=== PATIENT | female | born 1940 | race Two or more races ===

== ENCOUNTER 2017-12-31 09:36 | Outpatient (CLI) | payer OTHER | END 2017-12-31 09:54 | disposition home or self-care (01) | LOC: NUCLEAR 09:36 → EDBD 09:36 → NUCLEAR 09:54 | DX: I70.213 Atherosclerosis of native arteries of extremities with intermittent claudication, bilateral legs (principal) ==

== ENCOUNTER 2018-03-18 15:32 | Emergency (ER) | payer OTHER ==
[~2018-03-18] VITALS: Ht 162.6 cm; Wt 90.7 kg
== END 2018-03-18 21:08 | disposition home or self-care (01) ==
LOC: ER 15:32
DX: G89.11 Acute pain due to trauma (principal); M54.5 Low back pain; M54.2 Cervicalgia; R51 Headache

== ENCOUNTER 2018-12-20 10:57 | Outpatient (CLI) | payer OTHER | END 2018-12-20 16:03 | disposition home or self-care (01) | LOC: SONOGRAMA 10:57 | DX: E04.1 Nontoxic single thyroid nodule (principal) ==

== ENCOUNTER 2018-12-31 11:31 | Outpatient (CLI) | payer OTHER | END 2018-12-31 11:34 | disposition home or self-care (01) | LOC: MAMO-SONO 11:31 | DX: Z12.31 Encounter for screening mammogram for malignant neoplasm of breast (principal); Z87.898 Personal history of other specified conditions; N60.11 Diffuse cystic mastopathy of right breast; N60.12 Diffuse cystic mastopathy of left breast; Z09 Encounter for follow-up examination after completed treatment for conditions other than malignant neoplasm ==

== ENCOUNTER 2019-03-28 19:18 | Emergency (ER) | payer OTHER ==
[~2019-03-28] VITALS: Ht 162.6 cm; Wt 86.2 kg
[2019-03-28] MEDS ORDERED: SYNTHROID100 MCG (20:09)
== END 2019-03-28 22:32 | disposition home or self-care (01) ==
LOC: ER 19:18
DX: J09.X2 Influenza due to identified novel influenza A virus with other respiratory manifestations (principal)

== ENCOUNTER 2019-06-03 13:54 | Outpatient (CLI) | payer OTHER ==
[~2019-06-03 13:54] MED LIST: SYNTHROID100 MCG
== END 2019-06-03 13:57 | disposition home or self-care (01) ==
LOC: NUCLEAR 13:54
DX: M85.89 Other specified disorders of bone density and structure, multiple sites (principal)

== ENCOUNTER 2020-01-21 12:05 | Outpatient (CLI) | payer OTHER | END 2020-01-21 12:12 | disposition home or self-care (01) | LOC: RAD 12:05 | PROVIDERS: ATTEND Specialist | DX: M77.12 Lateral epicondylitis, left elbow (principal); M17.0 Bilateral primary osteoarthritis of knee; M25.512 Pain in left shoulder; M25.522 Pain in left elbow ==

== ENCOUNTER → 2020-02-12 | Outpatient (CLI) | payer OTHER | END | disposition home or self-care (01) | LOC: RAD 11:20 | PROVIDERS: ATTEND Pulmonary Function Technologist | DX: J45.998 Other asthma (principal); M79.7 Fibromyalgia ==

== ENCOUNTER 2021-06-16 11:30 | Outpatient (CLI) | payer OTHER | END 2021-06-16 15:43 | disposition home or self-care (01) | LOC: NUCLEAR 11:30 | DX: M81.0 Age-related osteoporosis without current pathological fracture (principal) ==

== ENCOUNTER 2021-06-28 07:26 | Outpatient (CLI) | payer OTHER | END 2021-06-28 07:27 | disposition home or self-care (01) | LOC: NUCLEAR 07:26 | PROVIDERS: ATTEND Internal Medicine Cardiovascular Disease | DX: I25.10 Atherosclerotic heart disease of native coronary artery without angina pectoris (principal) | CPT/HCPCS: 78452; A9500 ==

== ENCOUNTER 2021-07-05 14:14 | Outpatient (CLI) | payer OTHER | END 2021-07-05 14:26 | disposition home or self-care (01) | LOC: LAB 14:14 | DX: D69.8 Other specified hemorrhagic conditions (principal) ==

== ENCOUNTER 2023-06-19 11:38 | Outpatient (CLI) | payer OTHER | END 2023-06-19 11:45 | disposition home or self-care (01) | LOC: MAMO-SONO 11:38 | PROVIDERS: ATTEND Internal Medicine | DX: Z12.31 Encounter for screening mammogram for malignant neoplasm of breast (principal) ==

== ENCOUNTER 2023-06-19 12:41 | Outpatient (CLI) | payer OTHER | END 2023-06-19 12:43 | disposition home or self-care (01) | LOC: NUCLEAR 12:41 | PROVIDERS: ATTEND Internal Medicine | DX: M81.0 Age-related osteoporosis without current pathological fracture (principal) ==